=== PATIENT | female | born 1945 | race Caucasian/White ===

== ENCOUNTER 2017-11-25 11:30 | Inpatient (IN) | payer OTHER ==
[~2017-11-25] VITALS: Ht 175.3 cm; Wt 78.9 kg
[2017-11-25] MEDS ORDERED: IBERSARTAN PO (14:12)
[2017-11-25] MEDS ORDERED: JANUVIA100 MG PO (14:12)
[2017-11-25] MEDS ORDERED: PRILOSEC PO (14:13)
[2017-11-25] MEDS ORDERED: TOPA PO (14:13)
[2017-11-25] MEDS ORDERED: SINGULAIR 5MG5 MG PO (14:14)
[2017-11-25] MEDS ORDERED: CLARITIN10 M1 PO (14:14)
[2017-11-25] MEDS ORDERED: ZOCOR40 MG PO (14:14)
[2017-11-25] MEDS ORDERED: ZANTAC300 MG PO (14:15)
[2017-11-25] MEDS ORDERED: RESTORIL30 M1 PO (14:15)
[2017-12-04] MEDS ORDERED: COLACE100 MG PO (11:13)
[2017-12-04] MEDS ORDERED: PERCOCET 5-3251 EACH PO (11:14)
[2017-12-04] MEDS ORDERED: RESTORIL30 M1 PO (11:14)
== END 2017-12-05 12:43 | disposition home or self-care (01) | DRG 472 ==
LOC: ADM 11:30 → EDSTATUS 11:30 → O/R 12-04 04:30 → SURH 12-04 10:30
PROVIDERS: Orthopaedic Surgery Orthopaedic Surgery of the Spine
PROC: 0RT30ZZ Resection of Cervical Vertebral Disc, Open Approach (ICD-10-PCS; 2017-12-04)
PROC: 07DS3ZZ Extraction of Vertebral Bone Marrow, Percutaneous Approach (ICD-10-PCS; 2017-12-04)
PROC: 0RG20A0 Fusion of 2 or more Cervical Vertebral Joints with Interbody Fusion Device, Anterior Approach, Anterior Column, Open Approach (ICD-10-PCS; principal; 2017-12-04 10:30)
DX: M47.12 Other spondylosis with myelopathy, cervical region (principal); M50.023 Cervical disc disorder at C6-C7 level with myelopathy; I10 Essential (primary) hypertension; E11.9 Type 2 diabetes mellitus without complications